=== PATIENT | female | born 1980 | race Asian ===

== ENCOUNTER 2019-02-24 14:15 | Outpatient (CLI) | payer OTHER | END 2019-02-24 23:59 | disposition home or self-care (01) | LOC: CFH 14:15 | PROVIDERS: ATTEND Physician Assistant | DX: Z12.31 Encounter for screening mammogram for malignant neoplasm of breast (principal); N63.20 Unspecified lump in the left breast, unspecified quadrant | CPT/HCPCS: 77067 ==

== ENCOUNTER 2019-03-27 14:03 | Outpatient (CLI) | payer OTHER | END 2019-03-27 23:59 | disposition home or self-care (01) | LOC: CFH 14:03 | PROVIDERS: ATTEND Physician Assistant | DX: N63.20 Unspecified lump in the left breast, unspecified quadrant (principal) | CPT/HCPCS: 76642; 77065; G0279; 77063 ==

== ENCOUNTER → 2019-08-19 | Outpatient (CLI) | payer OTHER ==
[2019-08-19 16:26] LABS: FREE T4 (FREE THYROXINE) 1.14 ng/dL (0.76-1.46)
== END | disposition home or self-care (01) ==
LOC: LAB 15:42
PROVIDERS: ATTEND Obstetrics & Gynecology Gynecology
DX: Z00.00 Encounter for general adult medical examination without abnormal findings (principal); Z13.220 Encounter for screening for lipoid disorders
CPT/HCPCS: 36415; 82397; 82670; 83001; 84439; 84443

== ENCOUNTER 2019-10-05 15:41 | Emergency (ER) | payer OTHER ==
[~2019-10-05] VITALS: Ht 160 cm; Wt 52.0 kg
[2019-10-05] MEDS ORDERED: ONDANSETRON ODT 4 MG ONE (15:44)
--- NOTE | 2019-10-05 15:45 | NUR ---
Lab at bedside-full set of labs including pink top obtained with service writer's verification.
--- NOTE | 2019-10-05 15:50 | NUR ---
Piv placed-medicated with 2mg morphine for 10/10 rlq pain, and 500ml ns bolus started
[2019-10-05] MEDS ORDERED: MORPHINE SULFATE 4 MG/ML, 1ML ONE (15:53)
[2019-10-05] MEDS ORDERED: SODIUM CHLORIDE FLUSH 10ML SYR IVF ONE (16:00)
[2019-10-05] MEDS ORDERED: PLEASE ENTER ALLERGIES MC SCH (16:00)
[2019-10-05] MEDS ORDERED: MORPHINE SULFATE 4 MG/ML, 1ML IVPush PRN (16:00)
[2019-10-05] MEDS ORDERED: ONDANSETRON ODT 4 MG PO ONE (16:00)
[2019-10-05] MEDS ORDERED: ONDANSETRON 2MG/ML, 2ML IVPush ONE ×2 (16:00→16:30)
[2019-10-05] MEDS ORDERED: SODIUM CHLORIDE 0.9% 1,000ML IVBOLUS ONE (16:00)
[2019-10-05 16:07] LABS: BASOPHILS # (AUTO) 0.01 x10^3/uL (0-0.1); BASOPHILS % (AUTO) 0 % (0-1); EOSINOPHILS # (AUTO) 0.16 x10^3/uL (0-0.4); EOSINOPHILS % (AUTO) 2 % (1-7); LYMPHOCYTES # (AUTO) 1.68 x10^3/uL (1-3.4); LYMPHOCYTES % (AUTO) 16 % (22-44); MD NO; MEAN CORPUSCULAR HGB CONC 33.1 g/dL (32.4-35.8); MEAN CORPUSCULAR VOLUME 93.6 fL (80-100); MEAN PLATELET VOLUME 6.7 fL (7.4-10.4); MONOCYTES # (AUTO) 0.41 x10^3/uL (0.2-0.8); MONOCYTES % (AUTO) 4 % (2-9); NEUTROPHILS # (AUTO) 8.04 x10^3/uL (1.8-6.8); NEUTROPHILS % (AUTO) 78 % (42-75); PLATELET COUNT 291 x10^3/uL (130-400); RED CELL DISTRIBUTION WIDTH 13.1 % (9.6-15.2)
[2019-10-05] MEDS ORDERED: ONDANSETRON 2MG/ML, 2ML ONE (16:09)
[2019-10-05 16:20] LABS: ALANINE AMINOTRANSFERASE 19 U/L (12-78); ALBUMIN 3.8 g/dL (3.4-5.0); ANION GAP 5 mmol/L (5-15); CALCIUM 8.9 mg/dL (8.5-10.1); CHLORIDE 105 mmol/L (98-107); CREATININE 0.49 mg/dL (0.55-1.02)
[2019-10-05] MEDS ORDERED: SODIUM CHLORIDE 0.9%, 500ML IVBOLUS ONE (16:30)
[2019-10-05 16:38] LABS: ALKALINE PHOSPHATASE 33 U/L (45-117); BILIRUBIN,TOTAL 0.6 mg/dL (0.2-1.0); TOTAL PROTEIN 7.6 g/dL (6.4-8.2)
--- NOTE | 2019-10-05 16:53 | NUR ---
With reassessment patient reports pain improved to 5/10. However nausea remains 10/10 500ml NS bolus complete Reminded of need for UA-PAtient reports she voided just prior to being triaged. Will continue to monitor
[2019-10-05] MEDS ORDERED: METOCLOPRAMIDE 5 MG/ML, 2ML IVPush ONE (17:00)
[2019-10-05] MEDS ORDERED: METOCLOPRAMIDE 5 MG/ML, 2ML ONE (17:08)
[2019-10-05 17:36] VITALS: BP 116/75
--- NOTE | 2019-10-05 17:44 | NUR ---
SELECTOR PACKER: HARJEET HENRIQUEZ PAGED PER ELDON CROCKETT REQUEST AT THIS TIME
[2019-10-05 17:58] LABS: MICROSCOPIC NOT IND
[2019-10-05] MEDS ORDERED: DIPHENHYDRAMINE 50 MG/ML, 1ML ONE (18:02)
[2019-10-05 18:06] LABS: CULTURE INDICATED? NO
--- NOTE | 2019-10-05 18:08 | NUR ---
Post reglan admin patient with anxiety/chest pressure/nausea. Provider aware. to admin benadryl. Pharmacy called to clarify safety with 1st trimester - medicated per emar with 25mg of benadryl Iv
--- NOTE | 2019-10-05 18:29 | NUR ---
ANXIETY/CHEST PAIN RESOLVED-PATIENT NOW RESTING COMFORTABLY
[2019-10-05] MEDS ORDERED: DIPHENHYDRAMINE 50 MG/ML, 1ML IVPush ONE ×2 (18:30)
--- NOTE | 2019-10-05 18:30 | NUR ---
CALLED TO COME PICK PATIENT SHE IS SEDATED FROM REGLAN/BEANDRYL. HE ESTIMATES HE WILL BE HERE BY 1939
--- NOTE | 2019-10-05 19:00 | NUR ---
REPORT TO ROMMEL VENEGAS
--- NOTE | 2019-10-05 19:10 | NUR ---
Report received from RUBI Boo. This RN to assume care. Patient sleeping in [facility]. Awaiting arrival.
== END 2019-10-05 19:33 | disposition home or self-care (01) ==
LOC: ED 19:27
DX: O26.891 Other specified pregnancy related conditions, first trimester (principal); O09.511 Supervision of elderly primigravida, first trimester; Z3A.01 Less than 8 weeks gestation of pregnancy
CPT/HCPCS: 36415; 76801; 80053; 81003; 84702; 85025; 86901; 96374; 96375; 99284; J1200; J2270; J2405; J2765; J7040; Q0162

== ENCOUNTER 2020-04-16 09:55 | Emergency (ER) | payer OTHER ==
[~2020-04-16] VITALS: Ht 160 cm; Wt 65.0 kg
[2020-04-16 10:22] VITALS: BP 117/72
[2020-04-16 11:33] LABS: RAPID INFLUENZA A Negative (Negative); RAPID INFLUENZA B Negative (Negative)
== END 2020-04-16 11:14 | disposition home or self-care (01) ==
LOC: ED 11:08
DX: B34.9 Viral infection, unspecified (principal); Z20.828 Contact with and (suspected) exposure to other viral communicable diseases
CPT/HCPCS: 36415; 87400; 87635; 99282; 99283

== ENCOUNTER 2020-05-24 10:38 | Inpatient (IN) | payer OTHER ==
[~2020-05-24] VITALS: Ht 160 cm; Wt 70.5 kg
[2020-05-24] MEDS ORDERED: FERR-46 PO (21:23)
[2020-05-24] MEDS ORDERED: CHOL10003 PO (21:23)
[2020-05-24] MEDS ORDERED: PREN1TAB79 PEG (21:23)
[2020-05-24 21:24] VITALS: BP 117/70
[2020-05-24 21:34] VITALS: BP 117/70
[2020-05-24] MEDS ORDERED: FENTANYL PF 100 MCG/2ML IVPush PRN (22:00)
[2020-05-24] MEDS ORDERED: ONDANSETRON 2MG/ML, 2ML IVPush PRN (22:00)
[2020-05-24] MEDS ORDERED: TERBUTALINE 1 MG/ML, 1ML IVPush PRN (22:00)
[2020-05-24] MEDS ORDERED: CALCIUM CARBONATE 500 MG TAB.CHEW PO PRN (22:00)
[2020-05-24] MEDS ORDERED: TERBUTALINE 1 MG/ML, 1ML SQ PRN (22:00)
[2020-05-24] MEDS ORDERED: OXYTOCIN 30U/ 0.9% NaCL 500ML 500 ML IV ONE (22:00)
[2020-05-24] MEDS ORDERED: SODIUM CITRATE/CITRIC ACID 30 ML UDC PO PRN (22:00)
[2020-05-24] MEDS ORDERED: D5%-LACTATED RINGERS 1,000 ML IV SCH (22:00)
[2020-05-24] MEDS ORDERED: DIPHENHYDRAMINE 50 MG/ML, 1ML IVPush ONE (22:30)
[2020-05-24] MEDS: LACTATED RINGERS 1,000 ML IV SCH (22:35)
[2020-05-24 22:49] LABS: BASOPHILS % (AUTO) 1 % (0-1); EOSINOPHILS % (AUTO) 1 % (1-7); LYMPHOCYTES % (AUTO) 14 % (22-44); MEAN CORPUSCULAR HEMOGLOBIN 32.7 pg (27.0-34.8); MEAN CORPUSCULAR HGB CONC 33.9 g/dL (32.4-35.8); MEAN PLATELET VOLUME 6.3 fL (7.4-10.4); MONOCYTES % (AUTO) 7 % (2-9); NEUTROPHILS % (AUTO) 77 % (42-75); PLATELET COUNT 288 x10^3/uL (130-400); RED BLOOD COUNT 3.83 x10^6/uL (3.82-5.3); RED CELL DISTRIBUTION WIDTH 13.3 % (9.6-15.2)
[2020-05-24 22:51] LABS: MD NO
[2020-05-24] MEDS ORDERED: NEWBORN KIT ONE (22:59)
[2020-05-24] MEDS ORDERED: LIDOCAINE 1%, 20ML ONE (23:00)
[2020-05-24] MEDS ORDERED: TERBUTALINE 1 MG/ML, 1ML ONE (23:00)
[2020-05-24] MEDS ORDERED: MISOPROSTOL 25 MCG TABLET ONE (23:54)
[2020-05-25] MEDS: MISOPROSTOL 25 MCG TABLET VG PRN ×2 (00:02→04:10)
[2020-05-25] MEDS ORDERED: MISOPROSTOL 25 MCG TABLET ONE (04:00)
[2020-05-25 04:11] VITALS: BP 122/76
[2020-05-25] MEDS: LACTATED RINGERS 1,000 ML IV SCH ×2 (08:15→11:00)
[2020-05-25] MEDS ORDERED: FENTANYL PF 100 MCG/2ML ONE ×2 (08:29→09:19)
[2020-05-25] MEDS: FENTANYL PF 100 MCG/2ML IV PRN ×2 (08:45→10:50)
[2020-05-25] MEDS ORDERED: FENTANYL/BUPIV./NS/PF 250 ML EPIDCONT ONE (09:19)
[2020-05-25] MEDS ORDERED: BUPIVACAINE 0.25% ONE (09:19)
[2020-05-25] MEDS ORDERED: LACTATED RINGERS 1,000 ML IVBOLUS ONE (11:30)
[2020-05-25] MEDS ORDERED: OXYTOCIN 30U/ 0.9% NaCL 500ML 1,000 ML ONE (12:13)
[2020-05-25] MEDS ORDERED: LACTATED RINGERS 1,000 ML IVBOLUS PRN (15:00)
[2020-05-25] MEDS ORDERED: ONDANSETRON 2MG/ML, 2ML IVPush PRN (15:00)
[2020-05-25] MEDS ORDERED: FENTANYL/BUPIV./NS/PF 250 ML EPIDCONT SCH (15:00)
[2020-05-25] MEDS ORDERED: LACTATED RINGERS 1,000 ML IV SCH (15:00)
[2020-05-25] MEDS ORDERED: EPHEDRINE 50 MG/ML, 1ML IVPush PRN (15:00)
[2020-05-25] MEDS ORDERED: MISOPROSTOL 200 MCG TABLET PR PRN (17:30)
[2020-05-25] MEDS ORDERED: OXYcodone IR 5MG TABLET PO PRN (17:30)
[2020-05-25] MEDS ORDERED: ONDANSETRON 2MG/ML, 2ML IV PRN (17:30)
[2020-05-25] MEDS ORDERED: SIMETHICONE 80 MG CHEW TAB PO PRN (17:30)
[2020-05-25] MEDS ORDERED: CALCIUM CARBONATE 500 MG TAB.CHEW PO PRN (17:30)
[2020-05-25 19:09] VITALS: BP 122/83
[2020-05-25] MEDS ORDERED: IBUPROFEN 600 MG TABLET ONE (19:12)
[2020-05-25] MEDS: IBUPROFEN 600 MG TABLET PO PRN (19:19)
[2020-05-25] MEDS: OXYTOCIN 30U/ 0.9% NaCL 500ML 500 ML IV SCH (19:20)
[2020-05-25 20:30] VITALS: BP 116/75
[2020-05-25] MEDS: OXYcodone/APAP 5/325MG TABLET PO PRN (20:37)
[2020-05-26 00:15] VITALS: BP 127/76
[2020-05-26] MEDS: OXYTOCIN 30U/ 0.9% NaCL 500ML 500 ML IV SCH ×3 (03:30→19:05)
[2020-05-26 04:30] VITALS: BP 101/70
[2020-05-26] MEDS: OXYcodone/APAP 5/325MG TABLET PO PRN (05:36)
[2020-05-26 05:38] LABS: BASOPHILS % (AUTO) 0 % (0-1); EOSINOPHILS % (AUTO) 1 % (1-7); LYMPHOCYTES % (AUTO) 10 % (22-44); MEAN CORPUSCULAR HEMOGLOBIN 32.7 pg (27.0-34.8); MEAN CORPUSCULAR HGB CONC 33.7 g/dL (32.4-35.8); MEAN PLATELET VOLUME 6.5 fL (7.4-10.4); MONOCYTES % (AUTO) 6 % (2-9); NEUTROPHILS % (AUTO) 83 % (42-75); PLATELET COUNT 228 x10^3/uL (130-400); RED BLOOD COUNT 3.32 x10^6/uL (3.82-5.3); RED CELL DISTRIBUTION WIDTH 13.4 % (9.6-15.2)
[2020-05-26 05:45] LABS: MD NO
[2020-05-26 07:05] VITALS: BP 118/77
[2020-05-26] MEDS: DOCUSATE 100 MG CAPSULE PO PRN ×2 (07:50→20:28)
[2020-05-26] MEDS: IBUPROFEN 600 MG TABLET PO PRN ×3 (07:50→20:28)
[2020-05-26] MEDS: PRENATAL VIT/IRON/FA 1 EACH TABLET PO SCH (07:50)
[2020-05-26 12:50] VITALS: BP 108/70
[2020-05-26 20:00] VITALS: BP 110/71
[2020-05-27 07:10] VITALS: BP 108/72
[2020-05-27] MEDS ORDERED: IBUP-1222 PO (09:25)
[2020-05-27] MEDS ORDERED: OXYC-302 PO (09:26)
[2020-05-27] MEDS: IBUPROFEN 600 MG TABLET PO PRN (12:37)
[2020-05-27] MEDS: DOCUSATE 100 MG CAPSULE PO PRN (12:37)
[2020-05-27] MEDS: PRENATAL VIT/IRON/FA 1 EACH TABLET PO SCH (12:37)
== END 2020-05-27 13:41 | disposition home or self-care (01) | DRG 806 ==
LOC: LDIP 21:07 → 2NW 05-25 20:21
PROVIDERS: ADMIT Obstetrics & Gynecology; ATTEND Obstetrics & Gynecology
PROC: 10E0XZZ Delivery of Products of Conception, External Approach (ICD-10-PCS; principal; 2020-05-25)
PROC: 0KQM0ZZ Repair Perineum Muscle, Open Approach (ICD-10-PCS; 2020-05-25)
PROC: 3E0R3BZ Introduction of Anesthetic Agent into Spinal Canal, Percutaneous Approach (ICD-10-PCS; 2020-05-25)
PROC: 00HU33Z Insertion of Infusion Device into Spinal Canal, Percutaneous Approach (ICD-10-PCS; 2020-05-25)
DX: O48.0 Post-term pregnancy (principal); O44.43 Low lying placenta NOS or without hemorrhage, third trimester; Z37.0 Single live birth; O62.2 Other uterine inertia; O70.1 Second degree perineal laceration during delivery; Z3A.40 40 weeks gestation of pregnancy; Z80.3 Family history of malignant neoplasm of breast; Z86.001 Personal history of in-situ neoplasm of cervix uteri; Z20.828 Contact with and (suspected) exposure to other viral communicable diseases
CPT/HCPCS: 36415; 85025; 86592; 86850; 86900; 87635; G0378; J3010; J2590; J7120